=== PATIENT | female | born 1990 | race Caucasian/White ===

== ENCOUNTER 2016-06-24 14:44 | Emergency (ER) | payer OTHER ==
--- NOTE | 2016-06-24 14:59 | ER Document Report ---
ED Medical Screen (RME) - General Stated Complaint: VAGINAL PROBLEM Mode of Arrival: Ambulatory Information source: Patient Notes: Patient complains of dislodgment of IUD. Patient denies any pain symptoms. I have greeted and performed a rapid initial assessment of this patient. A comprehensive ED assessment and evaluation of the patient, analysis of test results and completion of the medical decision making process will be conducted by additional ED providers. TRAVEL OUTSIDE OF THE [place] IN LAST 30 DAYS: No - Related Data Allergies/Adverse Reactions: Penicillins Allergy (Verified 06/24/16 14:59) hives/swelling Past Medical History Neurological Medical History: Reports: Hx Migraine Physical Exam - Vital signs Vitals: Temp Pulse Resp BP Pulse Ox 98.1 F 58 L 16 113/71 99 06/24/16 14:56 06/24/16 14:56 06/24/16 14:56 06/24/16 14:56 06/24/16 14:56 - General General appearance: Appears well, Alert In distress: None Course - Vital Signs Vital signs: Temp Pulse Resp BP Pulse Ox 98.1 F 58 L 16 113/71 99 06/24/16 14:56 06/24/16 14:56 06/24/16 14:56 06/24/16 14:56 06/24/16 14:56
--- NOTE | 2016-06-24 17:34 | ER Document Report ---
ED General - General Chief Complaint: Vaginal Pain Stated Complaint: VAGINAL PROBLEM Mode of Arrival: Ambulatory Information source: Patient Notes: She presents to the emergency department with complaints of when she was taking a shower this morning she noted her IUD coming out of vaginal canal. She denies fever vomiting diarrhea. She reports a little bit of bloody discharge. IUD was placed in Dec at the [facility]. TRAVEL OUTSIDE OF THE [place] IN LAST 30 DAYS: No - HPI Onset: This morning Onset/Duration: Sudden Quality of pain: No pain Associated symptoms: None Exacerbated by: Denies Relieved by: Denies Similar symptoms previously: No Recently seen / treated by doctor: No - Related Data Allergies/Adverse Reactions: Penicillins Allergy (Verified 06/24/16 14:59) hives/swelling Past Medical History - General Information source: Patient Last Menstrual Period: 04-30-16 until 06-08-2016 - Social History Smoking Status: Unknown if Ever Smoked Chew tobacco use (# tins/day): No Frequency of alcohol use: None Drug Abuse: None Lives with: Family Family History: Reviewed & Not Pertinent Patient has suicidal ideation: No Patient has homicidal ideation: No Neurological Medical History: Reports: Hx Migraine Renal/ Medical History: Denies: Hx Peritoneal Dialysis Surgical Hx: Negative - Immunizations Hx Diphtheria, Pertussis, Tetanus Vaccination: Yes Review of Systems - Review of Systems Notes: Review HPI for review of systems., All other systems negative Physical Exam - Vital signs Vitals: Temp Pulse Resp BP Pulse Ox 98.1 F 58 L 16 113/71 99 06/24/16 14:56 06/24/16 14:56 06/24/16 14:56 06/24/16 14:56 06/24/16 14:56 - Notes Notes: PHYSICAL EXAMINATION: GENERAL: Well-appearing and in no acute distress HEAD: Atraumatic, normocephalic. EYES: Pupils equal round extraocular movements intact, sclera anicteric, conjunctiva are normal. ENT: nares patent, Moist mucous membranes. NECK: Normal range of motion, supple without lymphadenopathy LUNGS: CTAB and equal. No wheezes rales or rhonchi. HEART: Regular rate ABDOMEN: No c/o pain EXTREMITIES: Normal range of motion, no pitting edema. No cyanosis. NEUROLOGICAL: Cranial nerves grossly intact. Normal sensory/motor PSYCH: Normal mood, normal affect. SKIN: Warm, Dry, normal turgor, no rashes or lesions noted Course - Re-evaluation Re-evalutation: 06/24/16 17:52 Patient does not want to wait for a test results. She will be contacted if it's positive. 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 06/24/16 18:34 Regnancy test negative - Vital Signs Vital signs: Temp Pulse Resp BP Pulse Ox 97.3 F 63 16 117/72 100 06/24/16 17:57 06/24/16 17:57 06/24/16 17:57 06/24/16 17:57 06/24/16 17:57 - Laboratory Laboratory results interpreted by me: 06/24/16 17:46 Ur Leukocyte Esterase SMALL H Procedures - Pelvic Exam Pelvic exam Time completed: 17:39 Cultures obtained: No Wet prep obtained: No Herpes culture obtained: No POC sent to lab: No - Foreign body removed: Yes - iud removed Bimanual exam performed: Yes Witnessed by: bonnie delgadillo Notes: 06/24/16 17:40 IUD removed without problems. IUD was almost out of the vaginal canal. Discharge - Discharge Clinical Impression: Encounter for IUD removal Condition: Stable Disposition: HOME, SELF-CARE Additional Instructions: *You have been treated for IUD removal *You will contacted if your test is positive *Follow up with your DISPERSION MIXER for recheck within one week *Avoid sexual intercourse until follow up *Return to ED for worsening condition, changes, needs
[2016-06-24 17:54] LABS: APPEARANCE,URINE CLEAR; BILIRUBIN,URINE NEGATIVE (NEGATIVE); GLUCOSE, URINE NEGATIVE (NEGATIVE); KETONES,URINE NEGATIVE (NEGATIVE); LEUKOCYTE ESTERASE,URINE SMALL (NEGATIVE); NITRITE,URINE NEGATIVE (NEGATIVE); PROTEIN,URINE NEGATIVE (NEGATIVE); URINE SPECIFIC GRAVITY 1.012; UROBILINOGEN,URINE NEGATIVE mg/dL (<2.0)
[2016-06-24 18:00] VITALS: BP 117/72
== END 2016-06-24 17:57 | disposition home or self-care (01) ==
LOC: ER 14:44
PROC: 0UPDXHZ Removal of Contraceptive Device from Uterus and Cervix, External Approach (ICD-10-PCS; principal; 2016-06-24)
DX: R10.2 Pelvic and perineal pain (principal); Z97.5 Presence of (intrauterine) contraceptive device; Z88.0 Allergy status to penicillin
CPT/HCPCS: 81001; 81025; 99283